=== PATIENT | male | born 1965 | race Caucasian/White ===

== ENCOUNTER 2018-08-29 13:00 | Inpatient (IN) | payer BC ==
[2018-08-29 13:39] VITALS: BMI 33.7
--- NOTE | 2018-08-29 14:42 | HP ---
CIWA Score Nausea/Vomitin-Mild Nausea/No Vomiting Muscle Tremors: 3 Anxiety: 4-Mod. Anxious/Guarded Agitation: 1-Slight > Activity Paroxysmal Sweats: No Perspiration Orientation: 0-Oriented Tacttile Disturbances: 0-None Auditory Disturbances: 1-Very Mild Visual Disturbances: 1-Very Mild Sensitivity Headache: 2-Mild CIWA-Ar Total Score: 13 - Admission Criteria [facility] Guidelines: Admission for Medically Managed Detox: Requires at least one of the followin. CIWA greater than 12 2. Seizures within the past 24 hours 3. Delirium tremens within the past 24 hours 4. Hallucinations within the past 24 hours 5. Acute intervention needed for co occurring medical disorder 6. Acute intervention needed for co occurring psychiatric disorder 7. Severe withdrawal that cannot be handled at a lower level of care (continued vomiting, continued diarrhea, abnormal vital signs) requiring intravenous medication and/or fluids 8. Patient presents the following: CIWA greater than 12 Admission Criteria Met: Admission criteria met Admission ROS S - HPI Chief Complaint: I need help to stop drinking Allergies/Adverse Reactions: Allergies Allergy/AdvReac Type Severity Reaction Status Date / Time aspirin Allergy Intermediate Swelling Verified 08/29/18 14:36 History of Present Illness: 53 yo gentleman here for detox from alcohol - states last time in detox was five years ago, first time here. States he was doing well for several years but had a housing issue and relapsed - seen in [facility] and referred here. No seizures but does have black outs. Feels very irritable, agitated if he cannot drink, drinks first thing in the morning. Exam Limitations: Clinical Condition - Ebola screening Have you traveled outside of the country in the last 21 days: No (N) Have you had contact with anyone from an Ebola affected area: No Have you been sick,other than usual withdrawal symptoms: No Do you have a fever: No - Review of Systems Constitutional: Loss of Appetite, Malaise, Changes in sleep EENT: reports: Blurred Vision Respiratory: reports: No Symptoms reported Cardiac: reports: Irregular Heart Rate GI: reports: Nausea : reports: Frequency Musculoskeletal: reports: No Symptoms Reported Integumentary: reports: Dryness Neuro: reports: Headache, Tremors Hematology: reports: No Symptoms Reported Psychiatric: reports: Judgement Intact, Mood/Affect Appropiate, Orientated x3, Anxious Other Systems: Reviewed and Negative Patient History - Patient Medical History Hx Anemia: No Hx Asthma: No Hx Chronic Obstructive Pulmonary Disease (COPD): No Hx Cancer: No Hx Cardiac Disorders: Yes (sometimes skipped beat? ) Hx Congestive Heart Failure: No Hx Hypertension: Yes (no meds, due to drinking) Hx Hypercholesterolemia: No Hx Pacemaker: No HX Cerebrovascular Accident: No Hx Seizures: No Hx Diabetes: No Hx Gastrointestinal Disorders: No Hx Liver Disease: No (not sure) Hx Genitourinary Disorders: No Hx Sexually Transmitted Disorders: No Hx Renal Disease (ESRD): No Hx Thyroid Disease: No Hx Human Immunodeficiency Virus (HIV): No Hx Hepatitis C: No Hx Depression: No Hx Suicide Attempt: No Hx Bipolar Disorder: No Hx Schizophrenia: No - Patient Surgical History Past Surgical History: No Hx Orthopedic Surgery: Yes (left hand middle finger surgical reattachment) Other Surgical History: head trauma needed laceration stitched 'a while ago' - PPD History Previous Implant?: Yes Documented Results: Negative w/o proof Implanted On Prior [facility] Admission?: No PPD to be Administered?: Yes - Reproductive History Patient is a Female of Child Bearing Age (11 -55 yrs old): No (male) - Smoking Cessation Smoking history: Current every day smoker Have you smoked in the past 12 months: Yes Aproximately how many cigarettes per day: 20 Initiated information on smoking cessation: Yes 'Breaking Loose' booklet given: 08/29/18 (give on floor) - Substance & Tx. History Hx Alcohol Use: Yes Hx Substance Use: Yes Substance Use Type: Alcohol, Cocaine Hx Substance Use Treatment: Yes (detox, rehab, 3/4 house) - Substances Abused alcohol Route: Oral Frequency: Daily Amount used: 1/5 vodka - sometimes two; 24 oz beer Age of first use: 27 Date of Last Use: 08/29/18 (10am) cocaine Route: Smoking Frequency: Daily Amount used: $500 Age of first use: 27 Date of Last Use: 08/28/18 Family Disease History - Family Disease History Family Disease History: Heart Disease: Mother (, heart transplant), CA: Father (;prostate cancer, ), Mother, Other: Father, Mother, Sister (one - healthy, etoh) Admission Physical Exam [facility] - Vital Signs Vital Signs: Vital Signs - 24 hr 08/29/18 13:37 Temperature 97.7 F Pulse Rate 75 Respiratory 18 Rate Blood Pressure 159/93 - Physical General Appearance: Yes: Nourished, Appropriately Dressed, Mild Distress, Obese , Anxious HEENTM: Yes: EOMI, Hearing grossly Normal, Normocephalic, Normal Voice, Pharynx Normal Respiratory: Yes: Normal Breath Sounds, No Respiratory Distress Neck: Yes: No masses,lesions,Nodules, Supple Breast: Yes: Breast Exam Deferred Cardiology: Yes: Regular Rhythm, Regular Rate Abdominal: Yes: Soft, Protuberent Genitourinary: Yes: Frequency Back: Yes: Normal Inspection Musculoskeletal: Yes: full range of Motion, Gait Steady Extremities: Yes: Normal Inspection, Normal Range of Motion, Non-Tender, Pedal Edema (mild ankle edema) Neurological: Yes: Fully Oriented, Alert, Motor Strength 5/5, Normal Mood/Affect , Normal Response Integumentary: Yes: Normal Color, Warm Lymphatic: Yes: Within Normal Limits - Diagnostic (1) Alcohol dependence with uncomplicated withdrawal Current Visit: Yes Status: Chronic (2) Nicotine dependence Current Visit: Yes Status: Acute Qualifiers: Nicotine product type: cigarettes Substance use status: uncomplicated Qualified Code(s): F17.210 - Nicotine dependence, cigarettes, uncomplicated (3) Obesity (BMI 30.0-34.9) Current Visit: Yes Status: Chronic (4) Borderline hypertension Current Visit: Yes Status: Chronic (5) History of syncope Current Visit: Yes Status: Chronic Comment: alcohol related Cleared for Admission [facility] - Detox or Rehab [facility] Level of Care: Medically Managed Detox Regimen/Protocol: Librium [facility] Breath Alcohol Content Breath Alcohol Content: 0 Urine Drug Screen - Results Drug Screen Negative: No Urine Drug Screen Results: SHAR-Cocaine
[2018-08-29] MEDS ORDERED: ACETAMINOPHEN 325 MG TABLET (FP) PO PRN (14:49)
[2018-08-29] MEDS ORDERED: MAGNESIUM HYDROX 2400MG/30ML ORAL SUSPENSION 30 ML CUP PO PRN (14:49)
[2018-08-29] MEDS ORDERED: P-EPHED 60MG/TRIPROLIDI 2.5MG TABLET PO PRN (14:49)
[2018-08-29] MEDS ORDERED: MAG HYDROX/AL HYDROX/SIMETH 30 ML UNIT-DOSE CUP PO PRN (14:49)
[2018-08-29] MEDS ORDERED: MAGNESIUM CITRATE 300 ML BOTTLE PO PRN (14:49)
[2018-08-29] MEDS ORDERED: MENTHOL/PHENOL 1 EACH UD MM PRN (14:49)
[2018-08-29] MEDS ORDERED: chlordiazePOXIDE HCL 25 MG CAPSULE PO PRN (14:49)
[2018-08-29] MEDS ORDERED: LOPERAMIDE HCL 2 MG CAPSULE PO PRN (14:49)
[2018-08-29] MEDS ORDERED: NICOTINE POLACRILEX 4 MG GUM BC PRN (14:49)
[2018-08-29] MEDS ORDERED: guaiFENesin/D-METHORPHAN HB 10 ML UNIT-DOSE CUPS PO PRN (14:49)
[2018-08-29] MEDS: chlordiazePOXIDE HCL 25 MG CAPSULE PO SCH ×2 (18:37→23:13)
[2018-08-29] MEDS ORDERED: MELATONIN 5 MG TABLETS PO PRN (22:00)
[2018-08-29 22:34] LABS: URINE APPEARANCE CLEAR; URINE BILIRUBIN NEGATIVE (<2.0 mg/dL); URINE COLOR LTYELLOW; URINE GLUCOSE (UA) NEGATIVE (NEGATIVE); URINE KETONE NEGATIVE (NEGATIVE); URINE LEUK ESTERASE NEGATIVE (NEGATIVE); URINE NITRITE NEGATIVE (NEGATIVE); URINE PROTEIN NEGATIVE (NEGATIVE); URINE UROBILINOGEN NEGATIVE mg/dL (0.2-1.0)
[2018-08-29] MEDS: THIAMINE HCL 100 MG TABLET (FP) PO SCH (23:13)
[2018-08-30] MEDS: chlordiazePOXIDE HCL 25 MG CAPSULE PO SCH ×4 (06:22→22:15)
--- NOTE | 2018-08-30 09:26 | EKG ---
Test Reason : Blood Pressure : / mmHG Vent. Rate : 075 BPM Atrial Rate : 075 BPM P-R Int : 126 ms QRS Dur : 086 ms QT Int : 356 ms P-R-T Axes : 045 015 091 degrees QTc Int : 397 ms NORMAL SINUS RHYTHM NONSPECIFIC T WAVE ABNORMALITY ABNORMAL ECG NO PREVIOUS ECGS AVAILABLE Confirmed by RAMESH PETERSON, SRAAH ([id number]) on 08/30/2018 9:26:12 AM Referred By: Confirmed By:SARAH CHANDLER MD
[2018-08-30 10:39] LABS: HEMATOCRIT 44.1 % (35.4-49); HEMOGLOBIN 15.2 GM/dL (11.7-16.9); MCH 30.4 pg (25.7-33.7); MCHC 34.4 g/dl (32.0-35.9); MEAN CELL VOLUME 88.3 fl (80-96); MEAN PLT VOLUME 9.3 fl (7.5-11.1); PLATELET COUNT 204 K/MM3 (134-434); RBC 4.99 M/mm3 (4.00-5.60); RDW 13.9 % (11.9-15.9); WHITE BLOOD COUNT 6.6 K/mm3 (4.0-10.0)
[2018-08-30 11:06] LABS: ALBUMIN 3.2 g/dl (3.4-5.0); ALK PHOS 88 U/L (45-117); ANION GAP 10 MMOL/L (8-16); BILIRUBIN,TOTAL 0.2 mg/dL (0.2-1); BLOOD UREA NITROGEN 15 mg/dL (7-18); CALCIUM 8.1 mg/dL (8.5-10.1); CHLORIDE 108 mmol/L (98-107); CO2 26 mmol/L (21-32); CREATININE 1.1 mg/dL (0.55-1.3); GLUCOSE,RANDOM 89 mg/dL (74-106); POTASSIUM 3.7 mmol/L (3.5-5.1); SGOT/AST 15 U/L (15-37); SGPT/ALT 26 U/L (13-61); SODIUM 144 mmol/L (136-145)
[2018-08-30] MEDS: PRENATAL VITAMINS W/ FOLIC ACID TABLET (FP) PO SCH (11:07)
--- NOTE | 2018-08-30 16:03 | PN ---
S CIWA - CIWA Score Nausea/Vomitin Muscle Tremors: 4-Moderate,w/Arms Extend Anxiety: 4-Mod. Anxious/Guarded Agitation: 4-Moderately Restless Paroxysmal Sweats: 3 Orientation: 0-Oriented Tacttile Disturbances: 1-Very Mild Itch/Numbness Auditory Disturbances: 0-None Visual Disturbances: 0-None Headache: 0-None Present CIWA-Ar Total Score: 18 BHS Progress Note (SOAP) Subjective: Sweating, headache (h/o migraine), stomach ache, indigestion Objective: 08/30/18 16:00 Last Vital Signs Temp Pulse Resp BP Pulse Ox 98.6 F 80 20 140/78 08/30/18 14:44 08/30/18 14:44 08/30/18 14:44 08/30/18 14:44 Laboratory Tests 08/29/18 08/30/18 08/30/18 18:30 07:15 07:15 WBC 6.6 RBC 4.99 Hgb 15.2 Hct 44.1 MCV 88.3 MCH 30.4 MCHC 34.4 RDW 13.9 Plt Count 204 MPV 9.3 Sodium 144 Potassium 3.7 Chloride 108 H Carbon Dioxide 26 Anion Gap 10 BUN 15 Creatinine 1.1 Creat Clearance w eGFR > 60 Random Glucose 89 Calcium 8.1 L Total Bilirubin 0.2 AST 15 ALT 26 Alkaline Phosphatase 88 Total Protein 6.0 L Albumin 3.2 L Urine Color Ltyellow Urine Appearance Clear Urine pH 6.0 Ur Specific [place] 1.010 Urine Protein Negative Urine Glucose (UA) Negative Urine Ketones Negative Urine Blood Negative Urine Nitrite Negative Urine Bilirubin Negative Urine Urobilinogen Negative Ur Leukocyte Esterase Negative RPR Titer 08/30/18 07:15 WBC RBC Hgb Hct MCV MCH MCHC RDW Plt Count MPV Sodium Potassium Chloride Carbon Dioxide Anion Gap BUN Creatinine Creat Clearance w eGFR Random Glucose Calcium Total Bilirubin AST ALT Alkaline Phosphatase Total Protein Albumin Urine Color Urine Appearance Urine pH Ur Specific [place] Urine Protein Urine Glucose (UA) Urine Ketones Urine Blood Urine Nitrite Urine Bilirubin Urine Urobilinogen Ur Leukocyte Esterase RPR Titer Nonreactive Labs reviewed Assessment: 08/30/18 16:00 Withdrawal symptoms Plan: Continue detox GERD: start protonix 40mg PO daily, first dose today
[2018-08-30] MEDS: PANTOPRAZOLE 40 MG TABLET (FP) PO SCH (17:28)
[2018-08-30] MEDS: THIAMINE HCL 100 MG TABLET (FP) PO SCH (22:16)
[2018-08-31] MEDS: chlordiazePOXIDE HCL 25 MG CAPSULE PO SCH ×2 (06:00→10:10)
[2018-08-31] MEDS: PRENATAL VITAMINS W/ FOLIC ACID TABLET (FP) PO SCH (10:10)
[2018-08-31] MEDS: PANTOPRAZOLE 40 MG TABLET (FP) PO SCH (10:10)
--- NOTE | 2018-08-31 12:33 | PN ---
S CIWA - CIWA Score Nausea/Vomitin-Mild Nausea/No Vomiting Muscle Tremors: 3 Anxiety: 2 Agitation: 2 Paroxysmal Sweats: 1-Minimal Palms Moist Orientation: 1-Uncertain about Date Tacttile Disturbances: 1-Very Mild Itch/Numbness Auditory Disturbances: 1-Very Mild Visual Disturbances: 0-None Headache: 2-Mild CIWA-Ar Total Score: 14 BHS Progress Note (SOAP) Subjective: tremor sweat anxiety restlessness reported does not do well with librium change to valium regimen for alcohol detox Objective: 08/31/18 12:32 Vital Signs Temperature 97.3 F L 08/31/18 09:01 Pulse Rate 62 08/31/18 09:01 Respiratory Rate 18 08/31/18 09:01 Blood Pressure 143/97 08/31/18 09:01 O2 Sat by Pulse Oximetry (%) Laboratory Last Values WBC 6.6 K/mm3 (4.0-10.0) 08/30/18 07:15 RBC 4.99 M/mm3 (4.00-5.60) 08/30/18 07:15 Hgb 15.2 GM/dL (11.7-16.9) 08/30/18 07:15 Hct 44.1 % (35.4-49) 08/30/18 07:15 MCV 88.3 fl (80-96) 08/30/18 07:15 MCH 30.4 pg (25.7-33.7) 08/30/18 07:15 MCHC 34.4 g/dl (32.0-35.9) 08/30/18 07:15 RDW 13.9 % (11.9-15.9) 08/30/18 07:15 Plt Count 204 K/MM3 (134-434) 08/30/18 07:15 MPV 9.3 fl (7.5-11.1) 08/30/18 07:15 Sodium 144 mmol/L (136-145) 08/30/18 07:15 Potassium 3.7 mmol/L (3.5-5.1) 08/30/18 07:15 Chloride 108 mmol/L (98-107) H 08/30/18 07:15 Carbon Dioxide 26 mmol/L (21-32) 08/30/18 07:15 Anion Gap 10 MMOL/L (8-16) 08/30/18 07:15 BUN 15 mg/dL (7-18) 08/30/18 07:15 Creatinine 1.1 mg/dL (0.55-1.3) 08/30/18 07:15 Creat Clearance w eGFR > 60 (>60) 08/30/18 07:15 Random Glucose 89 mg/dL (74-106) 08/30/18 07:15 Calcium 8.1 mg/dL (8.5-10.1) L 08/30/18 07:15 Total Bilirubin 0.2 mg/dL (0.2-1) 08/30/18 07:15 AST 15 U/L (15-37) 08/30/18 07:15 ALT 26 U/L (13-61) 08/30/18 07:15 Alkaline Phosphatase 88 U/L (45-117) 08/30/18 07:15 Total Protein 6.0 g/dl (6.4-8.2) L 08/30/18 07:15 Albumin 3.2 g/dl (3.4-5.0) L 08/30/18 07:15 Urine Color Ltyellow 08/29/18 18:30 Urine Appearance Clear 08/29/18 18:30 Urine pH 6.0 (5.0-8.0) 08/29/18 18:30 Ur Specific [place] 1.010 (1.010-1.035) 08/29/18 18:30 Urine Protein Negative (NEGATIVE) 08/29/18 18:30 Urine Glucose (UA) Negative (NEGATIVE) 08/29/18 18:30 Urine Ketones Negative (NEGATIVE) 08/29/18 18:30 Urine Blood Negative (NEGATIVE) 08/29/18 18:30 Urine Nitrite Negative (NEGATIVE) 08/29/18 18:30 Urine Bilirubin Negative (<2.0 mg/dL) 08/29/18 18:30 Urine Urobilinogen Negative mg/dL (0.2-1.0) 08/29/18 18:30 Ur Leukocyte Esterase Negative (NEGATIVE) 08/29/18 18:30 RPR Titer Nonreactive (NONREACTIVE) 08/30/18 07:15 lab noted Assessment: 08/31/18 12:33 withdrawal sx Plan: continue detox
[2018-08-31] MEDS ORDERED: chlordiazePOXIDE 5 MG CAPSULE PO SCH (17:00)
[2018-08-31] MEDS: THIAMINE HCL 100 MG TABLET (FP) PO SCH (22:10)
[2018-09-01] MEDS: PANTOPRAZOLE 40 MG TABLET (FP) PO SCH (06:23)
[2018-09-01] MEDS ORDERED: diazePAM 5 MG TABLET PO SCH ×2 (10:00→11:30)
[2018-09-01] MEDS: PRENATAL VITAMINS W/ FOLIC ACID TABLET (FP) PO SCH (10:25)
[2018-09-01] MEDS: diazePAM 5 MG TABLET PO SCH ×2 (10:26→22:24)
--- NOTE | 2018-09-01 12:28 | PN ---
BHS Progress Note (SOAP) Subjective: feeling better no tremor less sweat social with peers on [address] and day room Objective: 09/01/18 12:24 Vital Signs Temperature 97.8 F 09/01/18 09:05 Pulse Rate 77 09/01/18 09:05 Respiratory Rate 18 12 09:05 Blood Pressure 146/94 09/01/18 09:05 O2 Sat by Pulse Oximetry (%) Laboratory Last Values WBC 6.6 K/mm3 (4.0-10.0) 08/30/18 07:15 RBC 4.99 M/mm3 (4.00-5.60) 08/30/18 07:15 Hgb 15.2 GM/dL (11.7-16.9) 08/30/18 07:15 Hct 44.1 % (35.4-49) 08/30/18 07:15 MCV 88.3 fl (80-96) 08/30/18 07:15 MCH 30.4 pg (25.7-33.7) 08/30/18 07:15 MCHC 34.4 g/dl (32.0-35.9) 08/30/18 07:15 RDW 13.9 % (11.9-15.9) 08/30/18 07:15 Plt Count 204 K/MM3 (134-434) 08/30/18 07:15 MPV 9.3 fl (7.5-11.1) 08/30/18 07:15 Sodium 144 mmol/L (136-145) 08/30/18 07:15 Potassium 3.7 mmol/L (3.5-5.1) 08/30/18 07:15 Chloride 108 mmol/L (98-107) H 08/30/18 07:15 Carbon Dioxide 26 mmol/L (21-32) 08/30/18 07:15 Anion Gap 10 MMOL/L (8-16) 08/30/18 07:15 BUN 15 mg/dL (7-18) 08/30/18 07:15 Creatinine 1.1 mg/dL (0.55-1.3) 08/30/18 07:15 Creat Clearance w eGFR > 60 (>60) 08/30/18 07:15 Random Glucose 89 mg/dL (74-106) 08/30/18 07:15 Calcium 8.1 mg/dL (8.5-10.1) L 08/30/18 07:15 Total Bilirubin 0.2 mg/dL (0.2-1) 08/30/18 07:15 AST 15 U/L (15-37) 08/30/18 07:15 ALT 26 U/L (13-61) 08/30/18 07:15 Alkaline Phosphatase 88 U/L (45-117) 08/30/18 07:15 Total Protein 6.0 g/dl (6.4-8.2) L 08/30/18 07:15 Albumin 3.2 g/dl (3.4-5.0) L 08/30/18 07:15 Urine Color Ltyellow 08/29/18 18:30 Urine Appearance Clear 08/29/18 18:30 Urine pH 6.0 (5.0-8.0) 08/29/18 18:30 Ur Specific [place] 1.010 (1.010-1.035) 08/29/18 18:30 Urine Protein Negative (NEGATIVE) 08/29/18 18:30 Urine Glucose (UA) Negative (NEGATIVE) 08/29/18 18:30 Urine Ketones Negative (NEGATIVE) 08/29/18 18:30 Urine Blood Negative (NEGATIVE) 08/29/18 18:30 Urine Nitrite Negative (NEGATIVE) 08/29/18 18:30 Urine Bilirubin Negative (<2.0 mg/dL) 08/29/18 18:30 Urine Urobilinogen Negative mg/dL (0.2-1.0) 08/29/18 18:30 Ur Leukocyte Esterase Negative (NEGATIVE) 08/29/18 18:30 RPR Titer Nonreactive (NONREACTIVE) 08/30/18 07:15 lab noted Assessment: 09/01/18 12:27 mild withdrawal sx hypertension Plan: medically supervised detox begin amlodipine 5 mg po bid
[2018-09-01] MEDS: amLODIPine BESYLATE 5 MG TABLET (FP) PO SCH (14:17)
[2018-09-01] MEDS ORDERED: chlordiazePOXIDE HCL 10 MG CAPSULE PO SCH (17:00)
[2018-09-01] MEDS: THIAMINE HCL 100 MG TABLET (FP) PO SCH (22:24)
[2018-09-02] MEDS ORDERED: diazePAM 5 MG TABLET PO ONE (06:00)
[2018-09-02 06:08] VITALS: BP 123/81; PULSE 52; TEMP 98.2
[2018-09-02] MEDS: PANTOPRAZOLE 40 MG TABLET (FP) PO SCH (07:08)
[2018-09-02] MEDS: PRENATAL VITAMINS W/ FOLIC ACID TABLET (FP) PO SCH (10:14)
[2018-09-02] MEDS: amLODIPine BESYLATE 5 MG TABLET (FP) PO SCH (10:14)
--- NOTE | 2018-09-02 13:20 | DS ---
[facility] Detox Discharge Summary Admission Date: 08/29/18 Discharge Date: 09/02/18 - History Present History: Alcohol Dependence Additional Comments: 53 years old male admitted on 08/29/18 for alcohol withdrawal stability completed alcohol detox regimen tolerated well alert no acute distress aftercare [place] - Physical Exam Results Vital Signs: Vital Signs Temperature 98.2 F 09/02/18 06:08 Pulse Rate 52 L 09/02/18 06:08 Respiratory Rate 18 09/02/18 06:08 Blood Pressure 123/81 09/02/18 06:08 O2 Sat by Pulse Oximetry (%) - Treatment Hospital Course: Detox Protocol Followed, Detoxed Safely, Responded well, Discharged Condition Good, Rehab Referral Accepted - Medication Discharge Medications: Ambulatory Orders NK [No Known Home Medication] 08/29/18 - AMA Did Patient Leave Against Medical Advice: No
== END 2018-09-02 10:05 | disposition home or self-care (01) | DRG 775 ==
LOC: YASAS 13:00 → Y3N 16:04
PROC: HZ2ZZZZ Detoxification Services for Substance Abuse Treatment (ICD-10-PCS; principal; 2018-08-29)
DX: F10.230 Alcohol dependence with withdrawal, uncomplicated (principal); F17.213 Nicotine dependence, cigarettes, with withdrawal; I10 Essential (primary) hypertension; K21.9 Gastro-esophageal reflux disease without esophagitis; E66.9 Obesity, unspecified; Z68.33 Body mass index [BMI] 33.0-33.9, adult; Z86.79 Personal history of other diseases of the circulatory system; Z59.0 Homelessness
CPT/HCPCS: 36415; 80053; 81003; 85027; 86593; 93005; 93010